=== PATIENT | male | born 1955 | race Two or more races ===

== ENCOUNTER 2017-05-22 08:18 | Day surgery (SDC) | payer BC ==
[~2017-05-22] VITALS: Ht 172.7 cm; Wt 77.1 kg
[2017-05-22] VITALS (11 sets, daily range): BP systolic 117–140; BP diastolic 64–90
[~2017-05-22 08:18] MED LIST: ceFAZolin sod 1 GM in NS 55 ML IVPB ONE
[2017-05-22] MEDS ORDERED: ASPIR 8181 MG ORAL (08:54)
[2017-05-22] MEDS ORDERED: CRESTOR20 MG ORAL (08:54)
[2017-05-22 08:56] LABS: BASOPHILS % (AUTO) 1.1 % (0.0-2.0); EOSINOPHILS % (AUTO) 2.5 % (0.0-3.0); HEMATOCRIT 47.1 % (42.0-52.0); HEMOGLOBIN 15.7 G/DL (14.2-18.0); LYMPHOCYTES % (AUTO) 27.2 % (20.0-45.0); MEAN CORPUSCULAR VOLUME 103 FL (80-99); MONOCYTES % (AUTO) 6.6 % (1.0-10.0); NEUTROPHILS % (AUTO) 62.6 % (45.0-75.0); PLATELET COUNT 327 K/UL (150-450); RED BLOOD COUNT 4.59 M/UL (4.70-6.10); RED CELL DISTRIBUTION WIDTH 11.2 % (11.6-14.8); WHITE BLOOD COUNT 12.1 K/UL (4.8-10.8)
[2017-05-22 09:06] LABS: INR 0.9 (0.9-1.1)
[2017-05-22] MEDS ORDERED: Iothalamate Meglumine 60% 30ML INJ ONE (10:34)
[2017-05-22] MEDS ORDERED: NS Irrig 1000ml ONE (10:40)
[2017-05-22] MEDS ORDERED: ePHEDrine 50mg/ml Inj ONE (10:40)
[2017-05-22] MEDS ORDERED: fentaNYL 100 mcg/2 mL IV ONE (10:40)
[2017-05-22] MEDS ORDERED: Sterile Water Irrig 1000ml IRRIG ONE (10:40)
[2017-05-22] MEDS ORDERED: LR 1000ml ONE (10:40)
[2017-05-22] MEDS ORDERED: Propofol 200mg/20ml IV ONE (10:40)
[2017-05-22] MEDS ORDERED: Lidocaine 1% MPF 10mg/ml 5ml ONE (10:40)
[2017-05-22] MEDS ORDERED: Metoclopramide 10mg/2ml Inj ONE (10:40)
[2017-05-22] MEDS ORDERED: Glycopyrrolate 0.2mg/ml 1ml Vial ONE (10:40)
[2017-05-22] MEDS ORDERED: Midazolam 2mg/2ml Inj ONE (10:40)
[2017-05-22] MEDS ORDERED: NS Irrig 4000ml IRRIG ONE ×2 (10:40→11:22)
--- NOTE | 2017-05-22 10:50 | Pre-Procedure Note/Attestation ---
Pre-Procedure Note/Attestation Complete Prior to Procedure Planned Procedure: left Procedure Narrative: left ureteroscopy with biopsy stent placement Indications for Procedure Pre-Operative Diagnosis: left ureteral tumor Attestation I attest that I discussed the nature of the procedure; its benefits; risks and complications; and alternatives (and the risks and benefits of such alternatives ), prior to the procedure, with the patient (or the patient's legal scheduling representative). I attest that, if there was a reasonable possibility of needing a blood transfusion, the patient (or the patient's legal scheduling representative) was given the [facility] standardized written summary, pursuant to the [place] Blood Safety Act ([place] Health and Safety Code # 1645, as amended). I attest that I re-evaluated the patient just prior to the surgery and that there has been no change in the patient's H&P, except as documented below: Hieu Zamora MD May 22, 2017 10:50
--- NOTE | 2017-05-22 11:48 | Brief Operative Note ---
Immediate Post Operative Note Operative Note Pre-op Diagnosis: left ureteral tumor Procedure: Left RIRS ureteral biopsy stent placement RPG Post-op Diagnosis: left ureteral tumor Post-op Diagnosis: same as pre-op Surgeon: Jaime Zamora Anesthesia: general Specimen: yes Complications: none Condition: stable Fluids: 500 Drains: other Implant(s) used?: No Hieu Zamora MD May 22, 2017 11:48
[2017-05-22] MEDS ORDERED: D5 1/2NS 1,000 ML IV SCH (12:00)
[2017-05-22] MEDS ORDERED: Norco 5mg/325mg tab ORAL PRN (12:00)
[2017-05-22] MEDS ORDERED: HYDROmorphone 1mg/ml Carpuject SUBQ PRN (12:00)
[2017-05-22] MEDS ORDERED: Tylenol #3 tab (300mg/30mg) ORAL PRN (12:00)
[2017-05-22] MEDS: fentaNYL 100 mcg/2 mL IV PRN ×2 (12:23→12:38)
--- NOTE | 2017-05-22 12:27 | Immediate Post-Op Evaluation ---
Immediate Post-Op Evalulation Immediate Post-Op Evalulation Procedure: pyelogram with stent Date of Evaluation: May 22, 2017 Time of Evaluation: 12:00 IV Fluids: 1000 Blood Pressure Systolic: 135 Blood Pressure Diastolic: 81 Pulse Rate: 97 Respiratory Rate: 14 O2 Sat by Pulse Oximetry: 97 Temperature (Fahrenheit): 98.6 Nausea: No Vomiting: No Complications none Patient Status: awake, reacts, patent Drug: ancef Given Within 1 Hr of Incision: Yes Time Given: 11:00 LOURDES WOODS CRNA May 22, 2017 12:26
--- NOTE | 2017-05-22 12:30 | Anethesia Preoperative Eval ---
Anesthesia Pre-op PMH/ROS General Date of Evaluation: May 22, 2017 Time of Evaluation: 11:00 Anesthesiologist: yola ASA Score: ASA 2 Mallampati Score Class I : Soft palate, uvula, fauces, pillars visible Class II: Soft palate, uvula, fauces visible Class III: Soft palate, base of uvula visible Class IV: Only hard plate visible Mallampati Classification: Class II Surgeon: nubia Diagnosis: hydronephrosis Surgical Procedure: Left retrograde pyelogram with stent Anesthesia History: none Social History: smoking, current smoker Family History: no anesthesia problems Allergies: Coded Allergies: No Known Allergies (Unverified , 05/22/17) Medications: see eMAR Past Medical History Cardiovascular: Reports: CAD, [place] - hx with stent Pulmonary: Reports: COPD Gastrointestinal/Genitourinary: Denies: GERD, CRI, ESRD, other Neurologic/Psychiatric: Denies: dementia, CVA, depression/anxiety, TIA, other Endocrine: Denies: DM, hypothyroidism, steroids, other HEENT: Denies: cataract (L), cataract (R), glaucoma, [place] (L[place] (R), other Hematology/Immune: Denies: anemia, DVT, bleeding disorder, other Musculoskeletal/Integumentary: Denies: OA, RA, DJD, DDD, edema, other PMH Narrative: prostate ca PSxH Narrative: prostate surgery Anesthesia Pre-op Phys. Exam Physician Exam Last Vital Signs Date Time Temp Pulse Resp B/P (MAP) Pulse Ox O2 Delivery O2 Flow Rate FiO2 05/22/17 12:20 96 21 140/88 98 Nasal Cannula 3.0 05/22/17 11:55 98.6 Constitutional: NAD Neurologic: CN 2-12 intact Cardiovascular: RRR Respiratory: CTA Gastrointestinal: S/NT/ND Airway Exam Mallampati Classification 2 Mallampati Score: Class II MO: full Neck: normal TMD: 2fb Teeth: other - one teeth lower Dentures: no upper, no lower Anesthesia Pre-op A/P Labs Hematology Test 05/22/17 08:35 White Blood Count 12.1 K/UL (4.8-10.8) H Red Blood Count 4.59 M/UL (4.70-6.10) L Hemoglobin 15.7 G/DL (14.2-18.0) Hematocrit 47.1 % (42.0-52.0) Mean Corpuscular Volume 103 FL (80-99) H Mean Corpuscular Hemoglobin 34.1 PG (27.0-31.0) H Mean Corpuscular Hemoglobin Concent 33.3 G/DL (32.0-36.0) Red Cell Distribution Width 11.2 % (11.6-14.8) L Platelet Count 327 K/UL (150-450) Mean Platelet Volume 7.4 FL (6.5-10.1) Neutrophils (%) (Auto) 62.6 % (45.0-75.0) Lymphocytes (%) (Auto) 27.2 % (20.0-45.0) Monocytes (%) (Auto) 6.6 % (1.0-10.0) Eosinophils (%) (Auto) 2.5 % (0.0-3.0) Basophils (%) (Auto) 1.1 % (0.0-2.0) Coagulation Test 05/22/17 08:35 Prothrombin Time 9.5 SEC (9.30-11.50) Prothromb Time International Ratio 0.9 (0.9-1.1) Activated Partial Thromboplast Time 27 SEC (23-33) Studies Pre-op Studies: EKG - sr Risk Assessment & Plan Plan: General LMA Status Change Before Surgery: No Pre-Antibiotics Drug: ancef Given Within 1 Hr of Incision: Yes Time Given: 11:00 LOURDES WOODS CRNA May 22, 2017 12:30
--- NOTE | 2017-05-22 13:08 | 48 Hour Post Anesthesia Eval ---
Post Anesthesia Evaluation Procedure: pyelogram with stent Date of Evaluation: May 22, 2017 Time of Evaluation: 13:08 Blood Pressure Systolic: 124 0: 90 Pulse Rate: 90 Respiratory Rate: 14 O2 Sat by Pulse Oximetry: 99 Airway: patent Nausea: No Vomiting: No Hydration Status: adequate Cardiopulmonary Status: stable Mental Status/LOC: patient returned to baseline Post-Anesthesia Complications: none Follow-up care needed: N/A LOURDES WOODS CRNA May 22, 2017 13:08
--- NOTE | 2017-05-22 15:46 | Diagnostic Imaging Report ---
Indication: Left hydronephrosis, intraoperative, pain Technique: Intraoperative images Comparison: none Findings: Intraoperative images document opacification of hydronephrotic left renal collecting system, placement of a nephroureteral stent Impression: Intraoperative imaging, as described
--- NOTE | 2017-05-27 08:15 | Operative Note - Dictated ---
DATE OF OPERATION: 05/22/2017 PREOPERATIVE DIAGNOSIS: Left renal tumor. OPERATION: Cystoscopy, retrograde pyelogram, 00:21 left ureteral biopsy, and double-J stent. POSTOPERATIVE DIAGNOSIS: Left renal tumor. SIGN MAKER: Hieu Brooks M.D. ANESTHESIA: General. FINDINGS: Large mid ureteral 00:32 INDICATION FOR SURGERY: The patient had left groin pain, showed obstruction in x-ray with some possible filling defects in the mid ureter. Treatment options were explained to him in great length including all potential complications. She signed a consent, brought to the operating room, placed in lithotomy position. Prepped and draped in a standard fashion. Under general anesthesia, cystoscope was introduced into the bladder. The bladder looked normal, no evidence of recurrent tumors. Right ureter was cannulated. Retrograde pyelogram was performed showing filling defects in the mid 01:21 ureter with hydronephrosis. A guidewire was placed and semi-rigid ureteroscope was placed. Tumor was found in the mid ureter and biopsied with Nitinol basket. After that, 01:32 6-Kiswahili double-J stent was placed and 01:36 brought through the [place] catheter. The patient tolerated the procedure well. No complications. Hieu Zamora M.D. DR: SCOTT JOB#: [id number] CC:
== END 2017-05-22 13:55 | disposition home or self-care (01) ==
LOC: SUR 08:18
DX: C64.2 Malignant neoplasm of left kidney, except renal pelvis (principal); N13.30 Unspecified hydronephrosis; I25.10 Atherosclerotic heart disease of native coronary artery without angina pectoris; J44.9 Chronic obstructive pulmonary disease, unspecified; I25.2 Old myocardial infarction; F17.210 Nicotine dependence, cigarettes, uncomplicated; Z85.46 Personal history of malignant neoplasm of prostate
CPT/HCPCS: 36415; 52332; 52354; 74420; 76000; 85025; 85610; 85730; J0690; J1940; J2250; J2405; J2704; J2765; J3010; J7120; Q9961; 94003; 94150

== ENCOUNTER 2017-06-26 05:12 | Inpatient (IN) | payer BC ==
[~2017-06-26] VITALS: Ht 172.7 cm; Wt 78.0 kg
[2017-06-26] VITALS (17 sets, daily range): BP systolic 131–186; BP diastolic 78–96
[~2017-06-26 05:12] MED LIST changes: +ASPIR 8181 MG ORAL; +CRESTOR20 MG ORAL; -ceFAZolin sod 1 GM in NS 55 ML IVPB ONE
[2017-06-26] MEDS ORDERED: ceFAZolin 1gm/50ml Premix 50 ML IV ONE (07:00)
[2017-06-26] MEDS ORDERED: Bupivacaine 0.5% Inj 30 ml vial INJ ONE (07:15)
[2017-06-26] MEDS ORDERED: Surgicel 4in x 8in TOPIC ONE ×2 (07:15→09:57)
--- NOTE | 2017-06-26 07:49 | Anethesia Preoperative Eval ---
Anesthesia Pre-op PMH/ROS General Date of Evaluation: Jun 26, 2017 Time of Evaluation: 07:48 Anesthesiologist: Sandra ASA Score: ASA 3 Mallampati Score Class I : Soft palate, uvula, fauces, pillars visible Class II: Soft palate, uvula, fauces visible Class III: Soft palate, base of uvula visible Class IV: Only hard plate visible Mallampati Classification: Class II Surgeon: Sera Diagnosis: L kidney mass Surgical Procedure: L laparoscopic nephrectomy Anesthesia History: none Social History: current smoker, alcohol use - occasional Family History: no anesthesia problems Allergies: Coded Allergies: No Known Allergies (Unverified , 05/22/17) Medications: see eMAR Past Medical History Cardiovascular: Reports: HTN, CAD - stable coronary stents x 2, Denies: MS, valve dz, arrhythmia, other Pulmonary: Reports: COPD - mild, Denies: asthma, [place], other Gastrointestinal/Genitourinary: Reports: GERD, CRI, other - bladder tumor, Denies: ESRD Neurologic/Psychiatric: Denies: dementia, CVA, depression/anxiety, TIA, other Endocrine: Denies: DM, hypothyroidism, steroids, other HEENT: Denies: cataract (L), cataract (R), glaucoma, [place] (L), [place] (R), other Hematology/Immune: Reports: anemia - mild, Denies: DVT, bleeding disorder, other Musculoskeletal/Integumentary: Denies: OA, RA, DJD, DDD, edema, other PMH Narrative: as above PSxH Narrative: bladder tumor resection, cysto with stent, coronary angiogram Anesthesia Pre-op Phys. Exam Physician Exam Last Vital Signs Date Time Temp Pulse Resp B/P (MAP) Pulse Ox O2 Delivery O2 Flow Rate FiO2 06/26/17 07:08 97.7 79 20 131/78 97 Room Air 97.7 Constitutional: NAD Neurologic: CN 2-12 intact Cardiovascular: RRR Respiratory: CTA Gastrointestinal: S/NT/ND Airway Exam Mallampati Score: Class II MO: limited Neck: stiff ROM: limited Teeth: missing Dentures: no upper, no lower Anesthesia Pre-op A/P Labs see chart Studies Pre-op Studies: EKG - SR, echo - EF 55% Risk Assessment & Plan Assessment: ASA 3 Plan: GA with ETT Status Change Before Surgery: No Pre-Antibiotics Drug: Ancef 2 gr. Given Within 1 Hr of Incision: Yes Time Given: 08:06 FRANCO JONES M.D. Jun 26, 2017 07:49
[2017-06-26] MEDS ORDERED: NS Irrig 1000ml IRRIG ONE (07:50)
--- NOTE | 2017-06-26 07:53 | Pre-Procedure Note/Attestation ---
Pre-Procedure Note/Attestation Complete Prior to Procedure Planned Procedure: left Procedure Narrative: Laparoscopic nephroureterectomy Indications for Procedure Pre-Operative Diagnosis: left ureteral and renal mass Attestation I attest that I discussed the nature of the procedure; its benefits; risks and complications; and alternatives (and the risks and benefits of such alternatives ), prior to the procedure, with the patient (or the patient's legal insurance account representative). I attest that, if there was a reasonable possibility of needing a blood transfusion, the patient (or the patient's legal insurance account representative) was given the [facility] standardized written summary, pursuant to the Juan C [place] Blood Safety Act ([place] Health and Safety Code # 1645, as amended). I attest that I re-evaluated the patient just prior to the surgery and that there has been no change in the patient's H&P, except as documented below: Hieu Zamora MD Jun 26, 2017 07:53
[2017-06-26] MEDS ORDERED: NS Irrig 1000ml ONE (08:00)
[2017-06-26] MEDS ORDERED: fentaNYL 100 mcg/2 mL IV ONE (08:00)
[2017-06-26] MEDS ORDERED: Zemuron 50mg/5ml Inj IV ONE (08:00)
[2017-06-26] MEDS ORDERED: Succinylcholine 20mg/ml 10ml vial ONE (08:00)
[2017-06-26] MEDS ORDERED: Midazolam 2mg/2ml Inj ONE (08:00)
[2017-06-26] MEDS ORDERED: LR 1000ml ONE (08:00)
[2017-06-26] MEDS ORDERED: Sterile Water Irrig 1000ml IRRIG ONE (08:00)
[2017-06-26] MEDS ORDERED: Propofol 200mg/20ml IV ONE (08:00)
[2017-06-26] MEDS ORDERED: Neostigmine 1mg/ml 10ml Inj ONE (08:00)
[2017-06-26] MEDS ORDERED: Morphine Sulfate 10mg/ml Inj ONE (08:00)
[2017-06-26] MEDS ORDERED: LR 1000ml 1,000 ML IVLG SCH (08:53)
[2017-06-26] MEDS ORDERED: DiphenhydrAMINE 50mg/ml Inj IVP PRN (09:00)
[2017-06-26] MEDS ORDERED: Meperidine 50mg/ml Inj(FOR RIGORS ONLY) IV PRN (09:00)
[2017-06-26] MEDS ORDERED: Midazolam 2mg/2ml Inj IVP PRN (09:00)
--- NOTE | 2017-06-26 09:52 | Brief Operative Note ---
Immediate Post Operative Note Operative Note Pre-op Diagnosis: left ureteral and renal mass Procedure: left laparoscopic radical nephroureterectomy Post-op Diagnosis: left ureteral mass Post-op Diagnosis: same as pre-op Surgeon: Jaime Zamora Anesthesia: general Specimen: yes Complications: none Condition: stable Fluids: 1000 Estimated Blood Loss: minimal Implant(s) used?: No Hieu Zamora MD Jun 26, 2017 09:52
[2017-06-26] MEDS: Hydromorphone 0.5mg/0.5ml inj IVP PRN ×2 (10:42→11:31)
--- NOTE | 2017-06-26 11:11 | Immediate Post-Op Evaluation ---
Immediate Post-Op Evalulation Immediate Post-Op Evalulation Procedure: Laparoscopic hand assisted L nephrectomy Date of Evaluation: Jun 26, 2017 Time of Evaluation: 09:50 IV Fluids: 1600 Blood Products: n0ne Estimated Blood Loss: 150 Urinary Output: 50 Blood Pressure Systolic: 168 Blood Pressure Diastolic: 74 Pulse Rate: 68 Respiratory Rate: 22 O2 Sat by Pulse Oximetry: 97 Temperature (Fahrenheit): 97.6 Pain Score (1-10): 3 Nausea: No Vomiting: No Complications none Patient Status: reacts, patent, extubated, none Hydration Status: adequate FRANCO JONES M.D. Jun 26, 2017 11:11
[2017-06-26 11:49] LABS: HEMATOCRIT 40.7 % (42.0-52.0); HEMOGLOBIN 13.5 G/DL (14.2-18.0); MEAN CORPUSCULAR VOLUME 105 FL (80-99); PLATELET COUNT 279 K/UL (150-450); RED BLOOD COUNT 3.88 M/UL (4.70-6.10); RED CELL DISTRIBUTION WIDTH 10.9 % (11.6-14.8); WHITE BLOOD COUNT 18.7 K/UL (4.8-10.8)
[2017-06-26 12:03] LABS: ANION GAP 6 mmol/L (5-15); BLOOD UREA NITROGEN 16 mg/dL (7-18); CALCIUM 8.1 MG/DL (8.5-10.1); CARBON DIOXIDE 26 MMOL/L (21-32); CHLORIDE 104 MMOL/L (98-107); CREATININE 1.5 MG/DL (0.55-1.30); PHOSPHORUS 2.8 MG/DL (2.5-4.9); POTASSIUM 3.8 MMOL/L (3.5-5.1); SODIUM 136 MMOL/L (136-145)
[2017-06-26] MEDS ORDERED: HYDROmorphone 1mg/ml Carpuject IVP PRN (13:00)
[2017-06-26] MEDS: D5 1/2NS w/KCl 20mEq 1,000 ML IV SCH ×2 (13:03→22:52)
[2017-06-26] MEDS ORDERED: ceFAZolin sod 2 GM in D5W 110 ML IV SCH (15:00)
--- NOTE | 2017-06-26 15:07 | History and Physical ---
History of Present Illness General Date patient seen: Jun 26, 2017 Present Illness HPI 61 year old male with hx of bladder cancer in 2006, presented to [facility] for Laparoscopic hand assisted L nephrectomy. Pt is admitted to surgical floor for post-op care. Allergies: Coded Allergies: No Known Allergies (Unverified , 05/22/17) Medication History Scheduled Aspirin* (Aspir 81*), 81 MG ORAL DAILY, (Reported) Discontinued Medications Rosuvastatin Calcium* (Crestor*), 20 MG ORAL DAILY, (Reported) Discontinued Reason: Pt stopped taking med Patient History Healthcare decision maker ANTONIA-SISTER Resuscitation status Full Code Advanced Directive on File Past Medical/Surgical History Past Medical/Surgical History: (1) Bladder cancer Physical Exam General Appearance: WD/WN Lines, tubes and drains: peripheral Neck: non-tender, normal alignment Respiratory/Chest: chest wall non-tender, lungs clear Breasts: no masses Cardiovascular/Chest: normal rate Abdomen: normal bowel sounds Extremities: normal range of motion Last 24 Hour Vital Signs Date Time Temp Pulse Resp B/P (MAP) Pulse Ox O2 Delivery O2 Flow Rate FiO2 06/26/17 13:30 97.0 96 20 162/87 95 97.0 06/26/17 12:54 97.4 06/26/17 12:30 97.3 88 18 160/86 95 97.3 06/26/17 12:15 82 20 179/85 96 Nasal Cannula 3.0 06/26/17 12:11 187/102 06/26/17 12:00 87 17 175/87 97 Nasal Cannula 3.0 06/26/17 11:31 97.4 06/26/17 11:30 87 19 179/85 96 Nasal Cannula 3.0 06/26/17 11:15 85 16 183/86 95 Nasal Cannula 3.0 06/26/17 11:11 207.7 68 22 97 06/26/17 11:00 82 16 184/95 98 Nasal Cannula 3.0 06/26/17 10:50 80 18 179/85 98 Nasal Cannula 3.0 06/26/17 10:42 97.5 06/26/17 10:40 85 17 181/83 98 Nasal Cannula 3.0 06/26/17 10:35 97.6 06/26/17 10:35 97.6 06/26/17 10:30 92 20 179/88 98 Nasal Cannula 3.0 06/26/17 10:15 83 17 186/96 98 Simple Mask 6.0 06/26/17 10:05 97.2 06/26/17 10:00 93 18 181/85 98 Simple Mask 6.0 06/26/17 09:50 97 19 174/82 98 Simple Mask 6.0 06/26/17 09:44 97.5 92 20 165/86 98 Simple Mask 6.0 97.5 06/26/17 07:08 97.7 79 20 131/78 97 Room Air 97.7 Laboratory Tests Test 06/26/17 11:35 White Blood Count 18.7 K/UL (4.8-10.8) H Red Blood Count 3.88 M/UL (4.70-6.10) L Hemoglobin 13.5 G/DL (14.2-18.0) L Hematocrit 40.7 % (42.0-52.0) L Mean Corpuscular Volume 105 FL (80-99) H Mean Corpuscular Hemoglobin 34.7 PG (27.0-31.0) H Mean Corpuscular Hemoglobin Concent 33.1 G/DL (32.0-36.0) Red Cell Distribution Width 10.9 % (11.6-14.8) L Platelet Count 279 K/UL (150-450) Mean Platelet Volume 6.3 FL (6.5-10.1) L Neutrophils (%) (Auto) % (45.0-75.0) Lymphocytes (%) (Auto) % (20.0-45.0) Monocytes (%) (Auto) % (1.0-10.0) Eosinophils (%) (Auto) % (0.0-3.0) Basophils (%) (Auto) % (0.0-2.0) Differential Total Cells Counted 100 Neutrophils % (Manual) 84 % (45-75) H Lymphocytes % (Manual) 10 % (20-45) L Monocytes % (Manual) 3 % (1-10) Eosinophils % (Manual) 0 % (0-3) Basophils % (Manual) 1 % (0-2) Band Neutrophils 2 % (0-8) Platelet Estimate Adequate Platelet Morphology Normal Red Blood Cell Morphology Normal Anisocytosis 1+ Sodium Level 136 MMOL/L (136-145) Potassium Level 3.8 MMOL/L (3.5-5.1) Chloride Level 104 MMOL/L (98-107) Carbon Dioxide Level 26 MMOL/L (21-32) Anion Gap 6 mmol/L (5-15) Blood Urea Nitrogen 16 mg/dL (7-18) Creatinine 1.5 MG/DL (0.55-1.30) H Estimat Glomerular Filtration Rate 47.3 mL/min (>60) Glucose Level 147 MG/DL (74-106) H Calcium Level 8.1 MG/DL (8.5-10.1) L Ionized Calcium (Measured) 1.11 mmol/L (1.10-1.35) Phosphorus Level 2.8 MG/DL (2.5-4.9) Magnesium Level 2.1 MG/DL (1.8-2.4) Height (Feet): 5 Height (Inches): 8.00 Weight (Pounds): 172 Medications Current Medications Medications (Trade) Dose Ordered Sig/Jazmine Route PRN Reason Start Time Stop Time Status Last Admin Dose Admin Acetaminophen (Tylenol) 650 mg Q4H PRN ORAL FEVER 06/26/17 13:00 07/26/17 12:59 Acetaminophen (Tylenol) 650 mg Q6H PRN ORAL Mild Pain (Pain Scale 1-3) 06/26/17 13:00 07/26/17 12:59 Acetaminophen/ Hydrocodone Bitart ([place] 5/325) 1 tab Q4H PRN ORAL Moderate Pain (Pain Scale 4-6) 06/26/17 13:00 07/03/17 12:59 Cefazolin Sodium 2 gm/Dextrose 110 ml @ 220 mls/hr Q8H IV 06/26/17 15:00 06/26/17 23:29 Dextrose/ Electrolytes 1,000 ml @ 100 mls/hr Q10H IV 06/26/17 13:30 07/26/17 13:29 06/26/17 13:03 Docusate Sodium (Colace) 100 mg TWICE A DAY ORAL 06/26/17 18:00 07/26/17 17:59 Hydromorphone HCl (Dilaudid) 1 mg Q3H PRN IVP pain score 4-6 06/26/17 13:00 07/03/17 12:59 06/26/17 12:54 Ondansetron HCl (Zofran) 4 mg Q6H PRN IVP Nausea & Vomiting 06/26/17 13:00 07/26/17 12:59 Temazepam (Restoril) 7.5 mg DAILYPRN PRN ORAL Insomnia 06/26/17 13:00 07/03/17 12:59 Assessment/Plan Problem List: (1) Renal cell cancer ICD Codes: C64.9 - Malignant neoplasm of unspecified kidney, except renal pelvis SNOMED: 58857769, [id number] (2) Bladder cancer ICD Codes: C67.9 - Malignant neoplasm of bladder, unspecified SNOMED: 795396405 Assessment/Plan tolerated nephrectomy analgesics symptomatic treatment iv hydration dvt prophylaxis. Vargas Hernández MD Jun 26, 2017 15:07
[2017-06-26] MEDS: HYDROmorphone 1mg/ml Carpuject IVP PRN ×3 (16:00→21:55)
[2017-06-26] MEDS: Docusate 100mg cap ORAL SCH (18:06)
[2017-06-26] MEDS: DiphenhydrAMINE 50mg/ml Inj IVP PRN (22:52)
[2017-06-26] MEDS: ceFAZolin 1gm/50ml Premix 50 ML IV SCH (23:36)
[2017-06-27] MEDS: ceFAZolin 1gm/50ml Premix 50 ML IV SCH (00:17)
[2017-06-27 00:23] VITALS: BP 132/80
[2017-06-27] MEDS: HYDROmorphone 1mg/ml Carpuject IVP PRN ×7 (01:06→22:42)
[2017-06-27 04:00] VITALS: BP 120/68
[2017-06-27 06:45] LABS: BASOPHILS % (AUTO) 0.5 % (0.0-2.0); EOSINOPHILS % (AUTO) 0.2 % (0.0-3.0); HEMATOCRIT 38.7 % (42.0-52.0); HEMOGLOBIN 12.9 G/DL (14.2-18.0); LYMPHOCYTES % (AUTO) 12.2 % (20.0-45.0); MEAN CORPUSCULAR VOLUME 106 FL (80-99); MONOCYTES % (AUTO) 9.9 % (1.0-10.0); NEUTROPHILS % (AUTO) 77.2 % (45.0-75.0); PLATELET COUNT 260 K/UL (150-450); RED BLOOD COUNT 3.65 M/UL (4.70-6.10); RED CELL DISTRIBUTION WIDTH 11.1 % (11.6-14.8); WHITE BLOOD COUNT 12.9 K/UL (4.8-10.8)
--- NOTE | 2017-06-27 06:55 | 48 Hour Post Anesthesia Eval ---
Post Anesthesia Evaluation Procedure: Laparoscopic hand assisted L nephrectomy Date of Evaluation: Jun 27, 2017 Time of Evaluation: 06:10 Blood Pressure Systolic: 120 0: 68 Pulse Rate: 88 Respiratory Rate: 20 Temperature (Fahrenheit): 97.6 O2 Sat by Pulse Oximetry: 93 Airway: patent Nausea: No Vomiting: No Pain Intensity: 2 Hydration Status: adequate Cardiopulmonary Status: at baseline Mental Status/LOC: patient returned to baseline Post-Anesthesia Complications: 0 Follow-up care needed: N/A - further carre as per primary team CLEVE SANCHEZ M.D. Jun 27, 2017 06:55
[2017-06-27 07:09] LABS: ANION GAP 6 mmol/L (5-15); BLOOD UREA NITROGEN 12 mg/dL (7-18); CALCIUM 8.3 MG/DL (8.5-10.1); CARBON DIOXIDE 29 MMOL/L (21-32); CHLORIDE 100 MMOL/L (98-107); CREATININE 1.3 MG/DL (0.55-1.30); POTASSIUM 4.4 MMOL/L (3.5-5.1); SODIUM 134 MMOL/L (136-145)
[2017-06-27] MEDS: DiphenhydrAMINE 50mg/ml Inj IVP PRN ×4 (07:41→22:41)
[2017-06-27 08:00] VITALS: BP 137/73
[2017-06-27] MEDS: D5 1/2NS w/KCl 20mEq 1,000 ML IV SCH ×2 (10:26→10:30)
[2017-06-27] MEDS: Docusate 100mg cap ORAL SCH ×2 (10:29→19:29)
[2017-06-27] MEDS ORDERED: ceFAZolin sod 2 GM in D5W 110 ML IV SCH (11:30)
[2017-06-27 12:00] VITALS: BP 139/73
[2017-06-27] MEDS: Norco 5mg/325mg tab ORAL PRN ×2 (12:53→23:49)
[2017-06-27 16:00] VITALS: BP 125/71
--- NOTE | 2017-06-27 19:40 | Pulmonology Progress Note ---
Assessment/Plan Problems: (1) Renal cell cancer (2) Bladder cancer Assessment/Plan advance diet check wbc symptomatic treatment check labs in am Subjective ROS Limited/Unobtainable: No Constitutional: Reports: no symptoms HEENT: Repors: no symptoms Allergies: Coded Allergies: No Known Allergies (Unverified , 05/22/17) Objective Last 24 Hour Vital Signs Date Time Temp Pulse Resp B/P (MAP) Pulse Ox O2 Delivery O2 Flow Rate FiO2 06/27/17 16:00 98.3 93 19 125/71 98 98.3 06/27/17 13:52 98.4 06/27/17 13:52 98.4 06/27/17 13:37 98.4 06/27/17 12:53 98.4 06/27/17 12:00 98.4 96 19 139/73 97 98.4 06/27/17 11:26 100.0 06/27/17 11:26 100.0 06/27/17 10:30 100.0 06/27/17 10:29 100.4 06/27/17 10:27 100.0 06/27/17 08:00 98.9 99 19 137/73 98 98.9 06/27/17 07:27 97.6 06/27/17 06:55 207.7 88 20 93 06/27/17 04:00 97.6 88 20 120/68 93 Nasal Cannula 2.0 97.6 06/27/17 00:23 97.5 91 20 132/80 94 Nasal Cannula 2.0 97.5 06/26/17 20:00 97.6 93 18 148/84 93 Room Air 97.6 Intake and Output 06/26/17 06/27/17 19:00 07:00 Intake Total 100 ml 800 ml Output Total 400 ml 600 ml Balance -300 ml 200 ml IV Total 100 ml 800 ml Output Urine Total 400 ml 600 ml General Appearance: WD/WN HEENT: normocephalic, atraumatic Respiratory/Chest: chest wall non-tender, lungs clear, no respiratory distress Cardiovascular: normal peripheral pulses, normal rate, regular rhythm Abdomen: normal bowel sounds, soft, non tender, no organomegaly Extremities: no cyanosis, no clubbing Skin: no rash, no lesions 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 Lymphatic: no neck adenopathy Laboratory Tests 06/27/17 05:45: White Blood Count 12.9H, Red Blood Count 3.65L, Hemoglobin 12.9L, Hematocrit 38.7L, Mean Corpuscular Volume 106H, Mean Corpuscular Hemoglobin 35.5H, Mean Corpuscular Hemoglobin Concent 33.4, Red Cell Distribution Width 11.1L, Platelet Count 260, Mean Platelet Volume 6.9, Neutrophils (%) (Auto) 77.2H, Lymphocytes (%) (Auto) 12.2L, Monocytes (%) (Auto) 9.9, Eosinophils (%) (Auto) 0.2, Basophils (%) (Auto) 0.5, Sodium Level 134L, Potassium Level 4.4, Chloride Level 100, Carbon Dioxide Level 29, Anion Gap 6, Blood Urea Nitrogen 12, Creatinine 1.3, Estimat Glomerular Filtration Rate 55.8, Glucose Level 112H, Calcium Level 8.3L Current Medications Medications (Trade) Dose Ordered Sig/Jazmine Route PRN Reason Start Time Stop Time Status Last Admin Dose Admin Acetaminophen (Tylenol) 650 mg Q4H PRN ORAL FEVER 06/26/17 13:00 07/26/17 12:59 06/27/17 10:29 Acetaminophen (Tylenol) 650 mg Q6H PRN ORAL Mild Pain (Pain Scale 1-3) 06/26/17 13:00 07/26/17 12:59 06/27/17 10:27 Acetaminophen/ Hydrocodone Bitart ([place] 5/325) 1 tab Q4H PRN ORAL Moderate Pain (Pain Scale 4-6) 06/26/17 13:00 07/03/17 12:59 06/27/17 12:53 Dextrose/ Electrolytes 1,000 ml @ 100 mls/hr Q10H IV 06/26/17 13:30 07/26/17 13:29 06/27/17 10:30 Diphenhydramine HCl (Benadryl) 25 mg Q4H PRN IVP Itching 06/27/17 13:30 07/27/17 13:29 06/27/17 13:37 Docusate Sodium (Colace) 100 mg TWICE A DAY ORAL 06/26/17 18:00 07/26/17 17:59 06/27/17 19:29 Hydromorphone HCl (Dilaudid) 2 mg Q3H PRN IVP Severe Pain (Pain Scale 7-10) 06/26/17 22:00 07/03/17 21:59 06/27/17 13:37 Ondansetron HCl (Zofran) 4 mg Q6H PRN IVP Nausea & Vomiting 06/26/17 13:00 07/26/17 12:59 06/26/17 18:42 Temazepam (Restoril) 7.5 mg DAILYPRN PRN ORAL Insomnia 06/26/17 13:00 07/03/17 12:59 Vargas Hernández MD Jun 27, 2017 19:40
--- NOTE | 2017-06-27 19:41 | Pulmonology Progress Note ---
Assessment/Plan Problems: (1) Renal cell cancer (2) Bladder cancer Assessment/Plan advance diet check wbc symptomatic treatment check labs in am Subjective ROS Limited/Unobtainable: No Allergies: Coded Allergies: No Known Allergies (Unverified , 05/22/17) Objective Last 24 Hour Vital Signs Date Time Temp Pulse Resp B/P (MAP) Pulse Ox O2 Delivery O2 Flow Rate FiO2 06/27/17 16:00 98.3 93 19 125/71 98 98.3 06/27/17 13:52 98.4 06/27/17 13:52 98.4 06/27/17 13:37 98.4 06/27/17 12:53 98.4 06/27/17 12:00 98.4 96 19 139/73 97 98.4 06/27/17 11:26 100.0 06/27/17 11:26 100.0 06/27/17 10:30 100.0 06/27/17 10:29 100.4 06/27/17 10:27 100.0 06/27/17 08:00 98.9 99 19 137/73 98 98.9 06/27/17 07:27 97.6 06/27/17 06:55 207.7 88 20 93 06/27/17 04:00 97.6 88 20 120/68 93 Nasal Cannula 2.0 97.6 06/27/17 00:23 97.5 91 20 132/80 94 Nasal Cannula 2.0 97.5 06/26/17 20:00 97.6 93 18 148/84 93 Room Air 97.6 Intake and Output 06/26/17 06/27/17 19:00 07:00 Intake Total 100 ml 800 ml Output Total 400 ml 600 ml Balance -300 ml 200 ml IV Total 100 ml 800 ml Output Urine Total 400 ml 600 ml General Appearance: WD/WN HEENT: normocephalic, atraumatic Respiratory/Chest: chest wall non-tender, lungs clear Cardiovascular: normal peripheral pulses, normal rate Abdomen: normal bowel sounds, soft, non tender Genitourinary: normal external genitalia Extremities: no cyanosis 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, no motor/sensory deficits Lymphatic: no neck adenopathy Laboratory Tests 06/27/17 05:45: White Blood Count 12.9H, Red Blood Count 3.65L, Hemoglobin 12.9L, Hematocrit 38.7L, Mean Corpuscular Volume 106H, Mean Corpuscular Hemoglobin 35.5H, Mean Corpuscular Hemoglobin Concent 33.4, Red Cell Distribution Width 11.1L, Platelet Count 260, Mean Platelet Volume 6.9, Neutrophils (%) (Auto) 77.2H, Lymphocytes (%) (Auto) 12.2L, Monocytes (%) (Auto) 9.9, Eosinophils (%) (Auto) 0.2, Basophils (%) (Auto) 0.5, Sodium Level 134L, Potassium Level 4.4, Chloride Level 100, Carbon Dioxide Level 29, Anion Gap 6, Blood Urea Nitrogen 12, Creatinine 1.3, Estimat Glomerular Filtration Rate 55.8, Glucose Level 112H, Calcium Level 8.3L Current Medications Medications (Trade) Dose Ordered Sig/Jazmine Route PRN Reason Start Time Stop Time Status Last Admin Dose Admin Acetaminophen (Tylenol) 650 mg Q4H PRN ORAL FEVER 06/26/17 13:00 07/26/17 12:59 06/27/17 10:29 Acetaminophen (Tylenol) 650 mg Q6H PRN ORAL Mild Pain (Pain Scale 1-3) 06/26/17 13:00 07/26/17 12:59 06/27/17 10:27 Acetaminophen/ Hydrocodone Bitart ([place] 5/325) 1 tab Q4H PRN ORAL Moderate Pain (Pain Scale 4-6) 06/26/17 13:00 07/03/17 12:59 06/27/17 12:53 Dextrose/ Electrolytes 1,000 ml @ 100 mls/hr Q10H IV 06/26/17 13:30 07/26/17 13:29 06/27/17 10:30 Diphenhydramine HCl (Benadryl) 25 mg Q4H PRN IVP Itching 06/27/17 13:30 07/27/17 13:29 06/27/17 13:37 Docusate Sodium (Colace) 100 mg TWICE A DAY ORAL 06/26/17 18:00 07/26/17 17:59 06/27/17 19:29 Hydromorphone HCl (Dilaudid) 2 mg Q3H PRN IVP Severe Pain (Pain Scale 7-10) 06/26/17 22:00 07/03/17 21:59 06/27/17 13:37 Ondansetron HCl (Zofran) 4 mg Q6H PRN IVP Nausea & Vomiting 06/26/17 13:00 07/26/17 12:59 06/26/17 18:42 Temazepam (Restoril) 7.5 mg DAILYPRN PRN ORAL Insomnia 06/26/17 13:00 07/03/17 12:59 Vargas Hernández MD Jun 27, 2017 19:41
[2017-06-27 20:00] VITALS: BP 150/87
[2017-06-27] MEDS ORDERED: Esomeprazole sodium 40mg vial IVP ONE (23:45)
[2017-06-28 00:05] VITALS: BP 161/80
[2017-06-28] MEDS: D5 1/2NS w/KCl 20mEq 1,000 ML IV SCH (02:26)
[2017-06-28 04:00] VITALS: BP 145/86
[2017-06-28] MEDS: HYDROmorphone 1mg/ml Carpuject IVP PRN ×2 (05:51→10:24)
[2017-06-28 07:36] LABS: ALANINE AMINOTRANSFERASE 19 U/L (12-78); ALBUMIN 3.3 G/DL (3.4-5.0); ALBUMIN/GLOBULIN RATIO 0.9 (1.0-2.7); ALKALINE PHOSPHATASE 57 U/L (46-116); ANION GAP 5 mmol/L (5-15); ASPARTATE AMINO TRANSFERASE 28 U/L (15-37); BASOPHILS % (AUTO) 0.7 % (0.0-2.0); BILIRUBIN,TOTAL 0.5 MG/DL (0.2-1.0); BLOOD UREA NITROGEN 8 mg/dL (7-18); CALCIUM 8.5 MG/DL (8.5-10.1); CARBON DIOXIDE 30 MMOL/L (21-32); CHLORIDE 101 MMOL/L (98-107); CREATININE 1.3 MG/DL (0.55-1.30); EOSINOPHILS % (AUTO) 0.7 % (0.0-3.0); HEMATOCRIT 39.4 % (42.0-52.0); LYMPHOCYTES % (AUTO) 11.6 % (20.0-45.0); MEAN CORPUSCULAR VOLUME 104 FL (80-99); MONOCYTES % (AUTO) 10.5 % (1.0-10.0); NEUTROPHILS % (AUTO) 76.5 % (45.0-75.0); PLATELET COUNT 253 K/UL (150-450); POTASSIUM 3.9 MMOL/L (3.5-5.1); RED BLOOD COUNT 3.78 M/UL (4.70-6.10); RED CELL DISTRIBUTION WIDTH 10.8 % (11.6-14.8); SODIUM 136 MMOL/L (136-145); WHITE BLOOD COUNT 12.7 K/UL (4.8-10.8)
[2017-06-28 08:10] VITALS: BP 152/79
[2017-06-28] MEDS ORDERED: Esomeprazole sodium 40mg vial IVP SCH (09:00)
[2017-06-28] MEDS ORDERED: Pantoprazole Inj IVP SCH (09:00)
[2017-06-28] MEDS: Docusate 100mg cap ORAL SCH (09:31)
[2017-06-28 12:10] VITALS: BP 156/84
[2017-06-28] MEDS: Norco 5mg/325mg tab ORAL PRN (13:33)
[2017-06-28] MEDS ORDERED: LEVOFLOXACIN250 MG ORAL (14:21)
[2017-06-28] MEDS ORDERED: ACETAMINOPHEN-1 EAC1 ORAL (14:21)
[2017-06-28] MEDS ORDERED: COLACE100 MG ORAL (14:22)
--- NOTE | 2017-06-28 14:43 | Pulmonology Progress Note ---
Assessment/Plan Problems: (1) Renal cell cancer (2) Bladder cancer Assessment/Plan advance diet check wbc symptomatic treatment wbc lower today dc home with f/u with Dr. Paniagua, prescription given Subjective ROS Limited/Unobtainable: No Constitutional: Reports: no symptoms HEENT: Repors: no symptoms Respiratory: Reports: no symptoms Allergies: Coded Allergies: No Known Allergies (Unverified , 05/22/17) Objective Last 24 Hour Vital Signs Date Time Temp Pulse Resp B/P (MAP) Pulse Ox O2 Delivery O2 Flow Rate FiO2 06/28/17 13:33 98.4 06/28/17 12:10 98.7 90 18 156/84 91 Room Air 98.7 06/28/17 10:54 98.4 06/28/17 08:10 98.4 92 18 152/79 91 Nasal Cannula 3.0 98.4 06/28/17 04:00 99.0 99 18 145/86 91 Nasal Cannula 3.0 99.0 06/28/17 00:05 98.3 98 18 161/80 91 Nasal Cannula 3.0 98.3 06/27/17 20:00 99.3 93 18 150/87 91 Nasal Cannula 3.0 99.3 06/27/17 18:30 98.3 06/27/17 16:00 98.3 93 19 125/71 98 98.3 Intake and Output 06/27/17 06/28/17 19:00 07:00 Intake Total 1640 ml 1000 ml Output Total 900 ml 2800 ml Balance 740 ml -1800 ml Intake Oral 240 ml 500 ml IV Total 1400 ml 500 ml Output Urine Total 900 ml 2800 ml # Voids 3 Objective General Appearance: WD/WN HEENT: normocephalic, atraumatic Respiratory/Chest: chest wall non-tender, lungs clear Cardiovascular: normal peripheral pulses, normal rate Abdomen: normal bowel sounds, soft, non tender Genitourinary: normal external genitalia Extremities: no cyanosis Neurologic/Psychiatric: 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 Complete Laboratory Tests 06/28/17 06:45: White Blood Count 12.7H, Red Blood Count 3.78L, Hemoglobin 13.0L, Hematocrit 39.4L, Mean Corpuscular Volume 104H, Mean Corpuscular Hemoglobin 34.5H, Mean Corpuscular Hemoglobin Concent 33.1, Red Cell Distribution Width 10.8L, Platelet Count 253, Mean Platelet Volume 7.3, Neutrophils (%) (Auto) 76.5H, Lymphocytes (%) (Auto) 11.6L, Monocytes (%) (Auto) 10.5H, Eosinophils (%) (Auto ) 0.7, Basophils (%) (Auto) 0.7, Sodium Level 136, Potassium Level 3.9, Chloride Level 101, Carbon Dioxide Level 30, Anion Gap 5, Blood Urea Nitrogen 8 , Creatinine 1.3, Estimat Glomerular Filtration Rate 55.8, Glucose Level 119H, Calcium Level 8.5, Phosphorus Level 2.0L, Magnesium Level 1.9, Total Bilirubin 0.5, Aspartate Amino Transf (AST/SGOT) 28, Alanine Aminotransferase (ALT/SGPT) 19, Alkaline Phosphatase 57, Total Protein 6.9, Albumin 3.3L, Globulin 3.6, Albumin/Globulin Ratio 0.9L Current Medications Medications (Trade) Dose Ordered Sig/Jazmine Route PRN Reason Start Time Stop Time Status Last Admin Dose Admin Acetaminophen (Tylenol) 650 mg Q4H PRN ORAL FEVER 06/26/17 13:00 07/26/17 12:59 06/27/17 10:29 Acetaminophen (Tylenol) 650 mg Q6H PRN ORAL Mild Pain (Pain Scale 1-3) 06/26/17 13:00 07/26/17 12:59 06/27/17 10:27 Acetaminophen/ Hydrocodone Bitart ([place] 5/325) 1 tab Q4H PRN ORAL Moderate Pain (Pain Scale 4-6) 06/26/17 13:00 07/03/17 12:59 06/28/17 13:33 Dextrose/ Electrolytes 1,000 ml @ 100 mls/hr Q10H IV 06/26/17 13:30 07/26/17 13:29 06/28/17 02:26 Diphenhydramine HCl (Benadryl) 25 mg Q4H PRN IVP Itching 06/27/17 13:30 07/27/17 13:29 06/27/17 22:41 Docusate Sodium (Colace) 100 mg TWICE A DAY ORAL 06/26/17 18:00 07/26/17 17:59 06/28/17 09:31 Hydromorphone HCl (Dilaudid) 2 mg Q3H PRN IVP Severe Pain (Pain Scale 7-10) 06/26/17 22:00 07/03/17 21:59 06/28/17 10:24 Nicotine (Nicoderm) 1 patch Q24H TDERMAL 06/28/17 10:30 07/28/17 10:29 06/28/17 10:46 Ondansetron HCl (Zofran) 4 mg Q6H PRN IVP Nausea & Vomiting 06/26/17 13:00 07/26/17 12:59 06/26/17 18:42 Pantoprazole (Protonix) 40 mg DAILY IVP 06/28/17 09:00 07/28/17 08:59 06/28/17 09:31 Temazepam (Restoril) 7.5 mg DAILYPRN PRN ORAL Insomnia 06/26/17 13:00 07/03/17 12:59 Vargas Hernández MD Jun 28, 2017 14:43
--- NOTE | 2017-06-28 22:15 | Operative Note - Dictated ---
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 OPERATION: Laparoscopic left nephroureterectomy with bladder cuff. PATIENT RESOURCE COORDINATOR: Hieu Zamora M.D. ANESTHESIA: General. FINDINGS: Transitional carcinoma of the ureter. INDICATIONS FOR SURGERY: The patient had a history of bladder cancer, who lost for followup, came back with gross hematuria. Evaluation showed a lesion in the left ureter. Ureteroscopy was performed and the biopsy confirmed the presence of left ureteral mass. Treatment options were explained to him in great length including all potential complications. He signed a consent. DESCRIPTION OF OPERATION: He was brought to the operating room, placed in the left lateral decubital position, prepped and draped in standard fashion. Incision was made in the subumbilical area, and hand port was placed into the abdomen. Two additional 12 mm trocars were placed. Dissection started with mobilization of the left renal column after establishment of the pneumoperitoneum. The left kidney was mobilized and dissected from the surrounding adhesions. Endo-KIMBERLY was used to transect the renal pedicle. After the kidney was completely mobilized, ureter was dissected all the way down to the ureterovesical junction. At this point, the incision in the lower abdomen was increased to approximately 8 to 9 cm, and bladder wall was exposed, dissected all the way down to the ureteral orifice and bladder cuff was resected together with the ureter in one piece and sent for pathologic examination. Bladder was closed in two layers of 2-0 Vicryl sutures. Branham catheter was left indwelling. The wound was . Total blood loss was approximately 30 mL. No evidence of bowel injuries. Sponge count and instrument count was correct. The wound was closed with a running 0 Vicryl suture and dashawn for the skin. The patient tolerated the procedure. Hieu Zamora M.D. DR: ANIKA JOB#: [id number] CC:
--- NOTE | 2017-07-01 10:47 | Discharge Summary ---
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 Consultations Abeba Villatoro- IM Procedures s/p 06/26/[address] Zamora Laparoscopic left nephroureterectomy with bladder cuff. Hospital Course s/p surgery course of recovery uneventful initially postop leukocytosis, afebrile empiric abx, IVF IS at the bedside, taught how to use and encourage compliance encourage OOB as tolerated pain management Branham draining clear urine diet slowly advanced, able to tolerate dressing C/D/I ambulated pain controlled leukocytosis trended down-12.7 ( from 18.7) GI prophylaxis Bowel regimen instituted Branham catheter changed to leg bag and instructions provided re use patient was cleared for dc outpt fup with surgeon as advised dc instructions provided scripts for analgesics, antibiotic and stool softener provided FINAL DIAGNOSIS 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 s/p Laparoscopic left nephroureterectomy with bladder cuff. Discharge Medications Continued Medications: Acetaminophen With Codeine (T#3) (Tylenol #3 Tab*) Y Tab 1 TAB ORAL Q6HR PRN for For Pain, TAB Aspirin* (Aspir 81*) 81 Mg Tablet.dr 81 MG ORAL DAILY, TAB Docusate Sodium* (Colace*) 100 Mg Capsule 100 MG ORAL THREE TIMES A DAY, CAP Levofloxacin (Levofloxacin*) 250 Mg Tablet 250 MG ORAL DAILY for 7 Days, TAB Discharge Condition Upon Discharge: stable Discharge Disposition Patient was discharged to Home () Discharge Diagnoses: Discharge Instructions Discharge Instructions Special Instructions I have been assigned to complete a D/C Summary on this account. I was not involved in the patient management My Justice NP (Vanchtein) Jul 01, 2017 10:47
== END 2017-06-28 15:00 | disposition home or self-care (01) | DRG 657 ==
LOC: SDSOVERFLO 05:12 → 3E 12:44
DX: C66.2 Malignant neoplasm of left ureter (principal); C64.2 Malignant neoplasm of left kidney, except renal pelvis; Z85.51 Personal history of malignant neoplasm of bladder
CPT/HCPCS: 36415; 80048; 80053; 82330; 83735; 84100; 85007; 85025; 86850; 86900; 86901; 87081; 94003; 94150; J2250; J2405; J2710